=== PATIENT | female | born 1995 | race African-American/Black ===

== ENCOUNTER 2021-12-04 11:56 | Observation (INO) ==
[2021-12-04] MEDS ORDERED: ONDANSETRON 4 MG/2 ML VIAL IV STA ×2 (15:58→17:23)
[2021-12-04] MEDS ORDERED: SODIUM CHLORIDE 0.9% 1,000 ML IV STA (15:58)
[2021-12-04 16:02] LABS: Basophils % 0.2 % (0.0-0.8); Eosinophils % 0.4 % (0.00-10.9); Hematocrit 40.5 VOL% (35.7-47.0); Hemoglobin 12.7 GM/DL (12.0-16.0); Immature Granulocytes % 0.3 %; Immature Granulocytes Absolute 0.03 #; Lymphocytes # 1.7 10*3/uL (1.4-4.0); Lymphocytes % 16.5 % (21.3-54.2); Mean Corpuscular HGB Conc 31.4 GM/DL (32-36); Mean Corpuscular Volume 78.8 FL (87-102); Mean Platelet Volume 11.9 FL (9.6-12.0); Monocytes # 0.4 10*3/uL (0.11-0.8); Monocytes % 4.2 % (1.7-12.7); Neutrophils % 78.4 % (38.7-73.9); Platelet Count 303 T/CUMM (130-400); Red Blood Count 5.14 MC/CUMM (3.8-5.5); White Blood Count 10.2 T/CUMM (4-12)
[2021-12-04 16:06] LABS: Bilirubin,Urine Negative (Negative); Blood, Urine Negative (Negative); Glucose,Urine (UA) 500 mg/dL (Negative); Ketones,Urine >=160 mg/dL (Negative); Nitrite,Urine Negative (Negative); Protein,Urine Trace mg/dL (Negative); Urine Appearance Clear (Clear); Urine Color Yellow (Yellow); Urine Specific Gravity >= 1.030 (1.001-1.035)
[2021-12-04 16:12] LABS: Bacteria,Urine Occasional /HPF (Few); Mucus,Urine Occasional /LPF (Occasional); Squamous Epithelial Cell,Urine Occasional /HPF (0-10)
[2021-12-04 16:18] LABS: Barbiturates Screen,Urine Negative (Negative); Benzodiazepines Screen,Urine Negative (Negative); Cannabinoid Screen,Urine Positive (Negative); Opiate Screen,Urine Negative (Negative); Phencyclidine Screen,Urine Negative (Negative)
[2021-12-04 16:26] LABS: Alanine Aminotransferase 31 U/L (13-56); Albumin 3.6 G/DL (3.4-5.0); Alkaline Phosphatase 66 U/L (45-117); Aspartate Amino Transferase 17 U/L (0-37); Bilirubin,Total < 0.39 MG/DL (0.20-1.00); Blood Urea Nitrogen 7 MG/DL (7-18); Calcium 9.4 MG/DL (8.5-10.1); Carbon Dioxide 25 MMOL/L (21-32); Chloride 103 MMOL/L (98-107); Estimated Glom Filtration Rate 139 ML/MIN; Glucose 244 MG/DL (74-106); Osmolality,Calculated 275.1 MOS/KG (273-304); Potassium 3.9 MMOL/L (3.5-5.1); Sodium 135 MMOL/L (136-145); Total Protein 8.6 G/DL (6.4-8.2)
[2021-12-04] MEDS ORDERED: MORPHINE 2 MG/1 ML SYRINGE IV STA (16:33)
[2021-12-04] MEDS ORDERED: PIPERACILLIN/TAZOBACTAM 3,375 MG in SODIUM CHLORIDE 0.9% 100 ML IV STA (16:56)
[2021-12-04] MEDS ORDERED: hydrALAZINE 20 MG/1 ML VIAL IV STA ×2 (16:57→17:58)
[2021-12-04] MEDS ORDERED: PANTOPRAZOLE 40 MG VIAL IV STA (17:06)
[2021-12-04] MEDS ORDERED: METOCLOPRAMIDE 10 MG/2 ML VIAL IV STA (17:06)
[2021-12-04] MEDS ORDERED: HYDROmorphone 1 MG/1 ML SYRINGE IV PRN (17:55)
[2021-12-04] MEDS ORDERED: PROMETHAZINE 25 MG/1 ML VIAL IM PRN (17:55)
[2021-12-04] MEDS ORDERED: ACETAMINOPHEN 325 MG TABLET PO PRN (17:55)
[2021-12-04] MEDS: ONDANSETRON 4 MG/2 ML VIAL IV PRN (21:13)
[2021-12-04] MEDS: LACTATED RINGERS 1,000 ML IV SCH (21:16)
[2021-12-05] MEDS: PIPERACILLIN/TAZOBACTAM 3,375 MG in SODIUM CHLORIDE 0.9% 100 ML IV SCH ×3 (01:19→13:55)
[2021-12-05] MEDS: ONDANSETRON 4 MG/2 ML VIAL IV PRN ×2 (05:35→15:05)
[2021-12-05] MEDS ORDERED: PANTOPRAZOLE 40 MG TABLET PO SCH (09:00)
[2021-12-05] MEDS: LACTATED RINGERS 1,000 ML IV SCH ×2 (09:33→16:00)
[2021-12-05] MEDS ORDERED: LACTATED RINGERS 1,000 ML IV SCH (10:30)
[2021-12-05] MEDS ORDERED: fentaNYL 100 MCG/2 ML VIAL ONE ×2 (10:32→11:12)
[2021-12-05] MEDS ORDERED: MIDAZOLAM 2 MG/2 ML VIAL ONE (10:32)
[2021-12-05] MEDS ORDERED: propofoL 200 MG/20 ML VIAL IV ONE ×2 (10:58→11:16)
[2021-12-05] MEDS ORDERED: LIDOCAINE 2% 5 ML VIAL ONE (10:58)
[2021-12-05] MEDS ORDERED: ONDANSETRON 4 MG/2 ML VIAL ONE (10:58)
[2021-12-05] MEDS ORDERED: ROCURONIUM 50 MG/5 ML VIAL IV ONE ×2 (10:58→11:17)
[2021-12-05] MEDS ORDERED: SEVOFLURANE 1 UNIT/15 MINUTE INH ONE (11:11)
[2021-12-05] MEDS ORDERED: LABETALOL 20 MG/4 ML SYRINGE IV ONE (11:25)
[2021-12-05] MEDS ORDERED: hydrALAZINE 20 MG/1 ML VIAL ONE (11:25)
[2021-12-05] MEDS ORDERED: SUGAMMADEX 200 MG/2 ML VIAL IV ONE (11:44)
[2021-12-05] MEDS ORDERED: TISSUE ADHESIVE 1 EACH APPLICATOR TOP ONE (11:48)
[2021-12-05] MEDS ORDERED: GLUCAGON 1 MG VIAL IM PRN (12:10)
[2021-12-05] MEDS ORDERED: DEXTROSE 10% 250 ML BAG IV PRN (12:48)
[2021-12-05] MEDS ORDERED: INSULIN LISPRO 100 UNIT/ML SUBCUT SCH (16:30)
[2021-12-05 16:43] VITALS: BP 144/85
== END 2021-12-05 18:22 | disposition home or self-care (01) ==
LOC: N.3E 11:56 → N.ED 11:56 → N.3E 20:02
PROVIDERS: ADMIT Student in an Organized Health Care Education/Training Program; ATTEND Student in an Organized Health Care Education/Training Program
PROC: LAPCHOL (2021-12-05 10:45)